=== PATIENT | male | born 1965 | race Caucasian/White ===

== ENCOUNTER 2020-03-21 04:40 | Day surgery (SDC) | payer OTHER ==
[2020-03-20 17:47] VITALS: BMI 29.6
[2020-03-21 16:29] LABS: BASO % 0.4 % (0-2.0); EOS % 4.7 % (0-4.5); HEMATOCRIT 46.1 % (35.4-49); HEMOGLOBIN 15.6 GM/dL (11.7-16.9); LYMPH % 30.4 % (8-40); MCH 31.3 pg (25.7-33.7); MCHC 33.9 g/dl (32.0-35.9); MEAN CELL VOLUME 92.4 fl (80-96); MEAN PLT VOLUME 9.3 fl (7.5-11.1); MONO % 7.5 % (3.8-10.2); PLATELET COUNT 166 K/MM3 (134-434); RBC 4.99 M/mm3 (4.00-5.60); RDW 12.8 % (11.9-15.9); WHITE BLOOD COUNT 7.1 K/mm3 (4.0-10.0)
[2020-03-21 16:48] LABS: POTASSIUM 4.5 mmol/L (3.5-5.1)
[2020-03-21 16:52] LABS: ALBUMIN 4.4 g/dl (3.4-5.0); BLOOD UREA NITROGEN 18.1 mg/dL (7-18)
[2020-03-21 16:56] LABS: BILIRUBIN,TOTAL 0.9 mg/dL (0.2-1); TOT PROT 8.2 g/dl (6.4-8.2)
[2020-03-21] MEDS ORDERED: MIDAZOLAM HCL 2 MG/2 ML SINGLE DOSE VIAL ONE (17:13)
[2020-03-21] MEDS ORDERED: SUCCINYLCHOLINE CHLORIDE 200 MG/10 ML SYRINGE ONE (17:14)
[2020-03-21] MEDS ORDERED: PROPOFOL 20 ML ONE ×3 (17:14)
[2020-03-21] MEDS ORDERED: IOHEXOL 180 MG/1 ML ML IJ ONE (18:20)
[2020-03-21] MEDS ORDERED: oxyCODONE HCL 5 MG TABLET PO PRN (19:30)
[2020-03-21] MEDS ORDERED: PROMETHAZINE HCL 25 MG/1 ML VIAL IVPUSH PRN (19:30)
[2020-03-21] MEDS ORDERED: ONDANSETRON 4 MG/2 ML VIAL IVPUSH PRN (19:30)
[2020-03-21] MEDS ORDERED: LACTATED RINGERS SOLUTION 1,000 ML IV SCH (19:30)
[2020-03-21 20:02] VITALS: BP 141/90
[2020-03-21 20:03] VITALS: PULSE 72; TEMP 98.5
== END 2020-03-21 21:07 | disposition home or self-care (01) ==
LOC: JASU-SURG 04:40 → J8W 19:56 → JASU-SURG 21:07
PROVIDERS: ATTEND Urology
PROC: 0T768DZ Dilation of Right Ureter with Intraluminal Device, Via Natural or Artificial Opening Endoscopic (ICD-10-PCS; principal; 2020-03-21 18:00)
PROC: 0T9680Z Drainage of Right Ureter with Drainage Device, Via Natural or Artificial Opening Endoscopic (ICD-10-PCS; 2020-03-21 18:00)
DX: N20.1 Calculus of ureter (principal)
CPT/HCPCS: 36415; 80053; 85025; 94760

== ENCOUNTER 2020-04-23 04:36 | Day surgery (SDC) | payer OTHER ==
[2020-04-06 10:49] VITALS: BMI 30.4
[2020-04-23] MEDS ORDERED: PROPOFOL 20 ML ONE ×3 (08:10→08:20)
[2020-04-23] MEDS ORDERED: MIDAZOLAM HCL 2 MG/2 ML SINGLE DOSE VIAL ONE (08:10)
[2020-04-23 10:06] VITALS: BP 126/86; PULSE 80; TEMP 97.8
== END 2020-04-23 09:40 | disposition home or self-care (01) ==
LOC: JASU-SURG 04:36
PROVIDERS: ATTEND Urology
PROC: 0TF3XZZ Fragmentation in Right Kidney Pelvis, External Approach (ICD-10-PCS; principal; 2020-04-23 08:00)
DX: N20.0 Calculus of kidney (principal)

== ENCOUNTER 2020-08-27 04:43 | Day surgery (SDC) | payer OTHER ==
[2020-08-24 08:42] VITALS: BMI 29.6
[2020-08-27] MEDS ORDERED: MIDAZOLAM HCL 2 MG/2 ML SINGLE DOSE VIAL ONE (08:44)
[2020-08-27] MEDS ORDERED: PROPOFOL 20 ML ONE ×2 (08:44→09:01)
[2020-08-27 09:29] VITALS: PULSE 63
[2020-08-27 11:59] VITALS: BP 133/79; TEMP 97.1
[2020-08-27] MEDS ORDERED: ACETAMINOPHEN 325 MG TABLET (FP) PO PRN (12:07)
[2020-08-27] MEDS ORDERED: ONDANSETRON 4 MG/2 ML VIAL IVPUSH PRN (12:07)
[2020-08-27] MEDS ORDERED: oxyCODONE HCL 5 MG TABLET PO PRN (12:07)
[2020-08-27] MEDS ORDERED: LACTATED RINGERS SOLUTION 1,000 ML IV SCH (12:15)
== END 2020-08-27 12:01 | disposition home or self-care (01) ==
LOC: JASU-SURG 04:43
PROVIDERS: ATTEND Urology
PROC: 0TF4XZZ Fragmentation in Left Kidney Pelvis, External Approach (ICD-10-PCS; principal; 2020-08-27 08:30)
DX: N20.0 Calculus of kidney (principal)

== ENCOUNTER 2021-11-18 05:13 | Day surgery (SDC) | payer OTHER ==
[2021-11-14 12:24] VITALS: BMI 31.1
[2021-11-18 06:27] VITALS: RESP 18
[2021-11-18] MEDS ORDERED: MIDAZOLAM HCL 2 MG/2 ML SINGLE DOSE VIAL ONE (07:36)
[2021-11-18] MEDS ORDERED: KETOROLAC TROMETHAMINE 30 MG/1 ML VIAL ONE ×2 (07:36→08:44)
[2021-11-18] MEDS ORDERED: PROPOFOL 20 ML ONE ×3 (07:36)
[2021-11-18 10:23] VITALS: TEMP 97.8
[2021-11-18 10:25] VITALS: BP 129/87; PULSE 64
== END 2021-11-18 10:15 | disposition home or self-care (01) ==
LOC: JASU-SURG 05:13
PROVIDERS: ATTEND Urology
PROC: 0TF3XZZ Fragmentation in Right Kidney Pelvis, External Approach (ICD-10-PCS; principal; 2021-11-18 08:41)
DX: N20.0 Calculus of kidney (principal)

== ENCOUNTER 2022-01-13 05:18 | Day surgery (SDC) | payer OTHER ==
[2022-01-08 16:24] VITALS: BMI 31.1
[2022-01-13 07:44] VITALS: RESP 18
[2022-01-13] MEDS ORDERED: PROPOFOL 20 ML ONE (09:19)
[2022-01-13] MEDS ORDERED: KETOROLAC TROMETHAMINE 30 MG/1 ML VIAL ONE (09:19)
[2022-01-13] MEDS ORDERED: MIDAZOLAM HCL 2 MG/2 ML SINGLE DOSE VIAL ONE (09:19)
[2022-01-13 10:09] VITALS: PULSE 64
[2022-01-13 10:57] VITALS: BP 134/82; TEMP 97.8
== END 2022-01-13 10:55 | disposition home or self-care (01) ==
LOC: JASU-SURG 05:18
PROVIDERS: ATTEND Urology
PROC: 0TF4XZZ Fragmentation in Left Kidney Pelvis, External Approach (ICD-10-PCS; principal; 2022-01-13 09:00)
DX: N20.0 Calculus of kidney (principal)

== ENCOUNTER 2022-02-08 14:45 | Inpatient (IN) | payer OTHER ==
[2022-02-08] MEDS ORDERED: SODIUM CHLORIDE 0.9% 500 ML INFUS.BAG IV ONE (16:08)
[2022-02-08] MEDS ORDERED: morphine SULFATE 4 MG/ML VIAL ONE (16:09)
[2022-02-08] MEDS ORDERED: KETOROLAC TROMETHAMINE 30 MG/1 ML VIAL ONE (16:09)
[2022-02-08] MEDS ORDERED: KETOROLAC TROMETHAMINE 15 MG/ML VIAL IVPUSH ONE (16:12)
[2022-02-08] MEDS ORDERED: morphine CARPU-JECT 4 MG/1 ML DISP.SYRIN IVPUSH ONE (16:12)
[2022-02-08] MEDS ORDERED: SODIUM CHLORIDE 1,000 ML IV STA (16:18)
[2022-02-08] MEDS ORDERED: morphine CARPU-JECT 2 MG/1 ML DISP.SYRIN IVPUSH ONE ×2 (17:02→19:38)
[2022-02-08 17:20] LABS: BASO % 0.9 % (0-2.0); EOS % 2.8 % (0-4.5); HEMATOCRIT 49.6 % (35.4-49); HEMOGLOBIN 16.6 GM/dL (11.7-16.9); LYMPH % 24.2 % (8-40); MCH 30.3 pg (25.7-33.7); MCHC 33.5 g/dl (32.0-35.9); MEAN CELL VOLUME 90.3 fl (80-96); MEAN PLT VOLUME 9.8 fl (7.5-11.1); MONO % 7.7 % (3.8-10.2); NEUT % 64.4 % (42.8-82.8); PLATELET COUNT 188 10^3/uL (134-434); WHITE BLOOD COUNT 8.2 K/mm3 (4.0-10.0)
[2022-02-08 17:26] LABS: INR 1.12 (0.83-1.09); PROTHROMBIN TIME (PATIENT) 12.9 SEC (9.7-13.0)
[2022-02-08 17:44] LABS: ALBUMIN 4.6 g/dl (3.4-5.0); BLOOD UREA NITROGEN 20.4 mg/dL (7-18); CALCIUM 10.2 mg/dL (8.5-10.1)
[2022-02-08 17:47] LABS: CREATININE 1.1 mg/dL (0.55-1.3)
[2022-02-08 17:49] LABS: BILIRUBIN,TOTAL 0.6 mg/dL (0.2-1); TOT PROT 8.4 g/dl (6.4-8.2)
[2022-02-08 20:12] LABS: EPI CELLS 1 /uL (0-25.1); HYALINE CASTS 1 /uL (0-3.1); URINE APPEARANCE CLEAR; URINE BACTERIA 0 /uL (0-1359); URINE BILIRUBIN NEGATIVE (NEGATIVE); URINE COLOR YELLOW; URINE GLUCOSE (UA) NEGATIVE (NEGATIVE); URINE KETONE TRACE (NEGATIVE); URINE LEUK ESTERASE NEGATIVE (NEGATIVE); URINE NITRITE NEGATIVE (NEGATIVE); URINE PROTEIN TRACE (NEGATIVE); URINE RBC 51 /uL (0-23.9); URINE UROBILINOGEN 0.2 mg/dL (0.2-1.0); URINE WBC 2 /uL (0-25.8)
[2022-02-08] MEDS ORDERED: TAMSULOSIN HCL 0.4 MG CAP ONE (23:57)
[2022-02-09] MEDS: TAMSULOSIN HCL 0.4 MG CAP PO SCH ×2 (00:01→10:45)
[2022-02-09 04:51] VITALS: BMI 33.7
[2022-02-09 10:34] LABS: BASO % 0.5 % (0-2.0); EOS % 3.1 % (0-4.5); HEMATOCRIT 43.3 % (35.4-49); HEMOGLOBIN 14.5 GM/dL (11.7-16.9); LYMPH % 22.9 % (8-40); MCH 30.4 pg (25.7-33.7); MCHC 33.6 g/dl (32.0-35.9); MEAN CELL VOLUME 90.6 fl (80-96); MEAN PLT VOLUME 9.2 fl (7.5-11.1); MONO % 9.8 % (3.8-10.2); NEUT % 63.7 % (42.8-82.8); PLATELET COUNT 146 10^3/uL (134-434); RBC 4.78 M/mm3 (4.00-5.60); RDW 13.3 % (11.9-15.9); WHITE BLOOD COUNT 7.2 K/mm3 (4.0-10.0)
[2022-02-09] MEDS: ALLOPURINOL 300 MG TABLET (FP) PO SCH (10:45)
[2022-02-09] MEDS: LACTATED RINGERS SOLUTION 1,000 ML/1,000 ML INFUS.BAG IV SCH (10:45)
[2022-02-09 10:50] LABS: CALCIUM 8.8 mg/dL (8.5-10.1)
[2022-02-09 10:51] LABS: MAGNESIUM 1.9 mg/dL (1.8-2.4)
[2022-02-09 10:54] LABS: CREATININE 0.9 mg/dL (0.55-1.3); PHOSPHOROUS 3.2 mg/dL (2.5-4.9)
[2022-02-09 10:55] LABS: BILIRUBIN,TOTAL 0.8 mg/dL (0.2-1)
[2022-02-09 11:03] LABS: ALBUMIN 3.2 g/dl (3.4-5.0); TOT PROT 6.2 g/dl (6.4-8.2)
[2022-02-09] MEDS: morphine SULFATE 4 MG/ML VIAL IVPUSH PRN (22:05)
[2022-02-09] MEDS: ACETAMINOPHEN 325 MG TABLET (FP) PO PRN (22:59)
[2022-02-10] MEDS: morphine SULFATE 4 MG/ML VIAL IVPUSH PRN ×2 (01:21→18:16)
[2022-02-10] MEDS: LACTATED RINGERS SOLUTION 1,000 ML/1,000 ML INFUS.BAG IV SCH (01:29)
[2022-02-10] MEDS ORDERED: DOCUSATE SODIUM 100 MG CAPSULE (FP) PO ONE (01:39)
[2022-02-10] MEDS ORDERED: HYDROmorphone HCl 2 MG/ML VIAL IVPUSH ONE (01:39)
[2022-02-10] MEDS ORDERED: ONDANSETRON 4 MG/2 ML VIAL IVPUSH ONE (01:41)
[2022-02-10] MEDS: ACETAMINOPHEN 325 MG TABLET (FP) PO PRN ×3 (05:51→21:21)
[2022-02-10] MEDS ORDERED: HYDROmorphone HCl 2 MG/ML VIAL IVPB ONE (06:21)
[2022-02-10] MEDS: TAMSULOSIN HCL 0.4 MG CAP PO SCH (09:58)
[2022-02-10] MEDS: ALLOPURINOL 300 MG TABLET (FP) PO SCH (09:58)
[2022-02-10] MEDS ORDERED: PROPOFOL 20 ML ONE ×2 (12:29→12:43)
[2022-02-10] MEDS ORDERED: LIDOCAINE HCL/PF 2% SDV 5ML VIAL ONE (12:29)
[2022-02-10] MEDS ORDERED: MIDAZOLAM HCL 2 MG/2 ML SINGLE DOSE VIAL ONE (12:30)
[2022-02-10] MEDS ORDERED: IBUPROFEN 800 MG/8 ML IJ IVPB PRN ×2 (14:01→14:37)
[2022-02-10] MEDS ORDERED: ONDANSETRON 4 MG/2 ML VIAL IVPUSH PRN ×2 (14:01→14:37)
[2022-02-10] MEDS ORDERED: LACTATED RINGERS SOLUTION 1,000 ML IV SCH ×2 (14:15→14:37)
[2022-02-10] MEDS: PATIENT'S OWN MEDICATION (NON-FORMULARY) (Finasteride [Finasteride] 1 MG Tablet) PO SCH ×2 (18:03→18:04)
[2022-02-10 22:53] VITALS: RESP 20
[2022-02-10] MEDS ORDERED: MELATONIN 5 MG TABLETS PO ONE (23:44)
[2022-02-11 07:18] VITALS: BP 153/80; PULSE 72; TEMP 97.8
[2022-02-11] MEDS: morphine SULFATE 4 MG/ML VIAL IVPUSH PRN (07:55)
[2022-02-11] MEDS ORDERED: ALLOPURINOL 300 MG TABLET (FP) PO SCH (10:00)
[2022-02-11 10:56] LABS: HEMATOCRIT 45.1 % (35.4-49); HEMOGLOBIN 15.2 GM/dL (11.7-16.9); MCH 30.7 pg (25.7-33.7); MCHC 33.7 g/dl (32.0-35.9); MEAN CELL VOLUME 91.1 fl (80-96); MEAN PLT VOLUME 8.7 fl (7.5-11.1); PLATELET COUNT 144 10^3/uL (134-434); RBC 4.95 M/mm3 (4.00-5.60); RDW 13.2 % (11.9-15.9); WHITE BLOOD COUNT 5.4 K/mm3 (4.0-10.0)
[2022-02-11] MEDS: ACETAMINOPHEN 325 MG TABLET (FP) PO PRN (11:26)
[2022-02-11 11:28] LABS: ALBUMIN 3.7 g/dl (3.4-5.0); CALCIUM 9.5 mg/dL (8.5-10.1)
[2022-02-11 11:29] LABS: BLOOD UREA NITROGEN 16.5 mg/dL (7-18)
[2022-02-11 11:31] LABS: CREATININE 0.9 mg/dL (0.55-1.3)
[2022-02-11 11:33] LABS: TOT PROT 7.1 g/dl (6.4-8.2)
== END 2022-02-11 12:57 | disposition home or self-care (01) | DRG 661 ==
LOC: JER 14:45 → JERBED 20:39 → J8W 02-09 00:08
PROVIDERS: ADMIT Internal Medicine; ATTEND Internal Medicine
PROC: 0T778DZ Dilation of Left Ureter with Intraluminal Device, Via Natural or Artificial Opening Endoscopic (ICD-10-PCS; principal; 2022-02-10 12:00)
PROC: 0TF78ZZ Fragmentation in Left Ureter, Via Natural or Artificial Opening Endoscopic (ICD-10-PCS; 2022-02-10 12:00)
PROC: BT1FZZZ Fluoroscopy of Left Kidney, Ureter and Bladder (ICD-10-PCS; 2022-02-10 12:00)
DX: N13.2 Hydronephrosis with renal and ureteral calculous obstruction (principal); N17.9 Acute kidney failure, unspecified
CPT/HCPCS: 36415; 74176-TC; 76000-TC-FY; 80053; 81003; 82360; 83735; 84100; 85025; 85027; 85610; 86850; 86900; 86901; 88300-TC; 93005; 93010; 94760; 99285-25; C1758; C2617; C9803-CS; U0003; U0005